=== PATIENT | female | born 1955 | race Hispanic/Latino ===

== ENCOUNTER → 2021-09-13 | Outpatient (CLI) | payer MEDICARE ==
[~2021-09-13] MED LIST: ALBUMIN (HUMAN) 25% 100 ML IV SCH; ALBUMIN (HUMAN) 25% 200 ML IV ONE; LIDOCAINE HCL MPF 1% 5ML VIAL ONE
[2021-09-13 08:46] LABS: BASOPHILS % (AUTO) 0.4 % (0.0-5.0); EOSINOPHILS % (AUTO) 0.1 % (0.0-8.0); HEMATOCRIT 38.9 % (36-48); LYMPHOCYTES % (AUTO) 5.3 % (21.0-51.0); MEAN CORPUSCULAR HGB CONC 31.6 g/dL (32.0-36.0); MEAN CORPUSCULAR VOLUME 85.3 fL (79-99); MONOCYTES % (AUTO) 6.3 % (3.0-13.0); NEUTROPHILS % (AUTO) 87.5 % (40.0-77.0); PLATELET COUNT (AUTO) 322 K/uL (130-400); RED BLOOD CELL COUNT(AUTO) 4.56 MIL/uL (4.00-5.50); RED CELL DISTRIBUTION WIDTH 12.7 % (11.0-15.5); WHITE BLOOD COUNT (AUTO) 13.2 K/uL (4.8-10.8)
[2021-09-13 08:57] LABS: INR 1.09 (0.85-1.15); PROTHROMBIN TIME 11.8 SEC (9.6-11.6)
[2021-09-13 08:58] LABS: PARTIAL THROMBOPLASTIN TIME 28.2 SEC (26.3-35.5)
[2021-09-13 09:33] LABS: ALBUMIN 2.9 g/dL (3.5-5.0)
[2021-09-13 12:28] LABS: ALBUMIN,BODY FLUID 2.4 g/dL; AMYLASE,BODY FLUID 27 U/L; GLUCOSE,BODY FLUID 105 mg/dL (1-40); TRIGLYCERIDES,BODY FLUID 29 mg/dL
[2021-09-13 12:42] LABS: SPECIMENTYPE,BODY FLUID ASCITES
[2021-09-13 12:43] LABS: APPEARANCE BODY FLUID CLEAR (CLEAR); BODY FLUID RBC 325 /cu. mm.; BODY FLUID WBC 514 /cu. mm.; COLOR,BODY FLUID YELLOW (LT YELLOW); TOTAL VOLUME,BODY FLUID 5000 mL
[2021-09-13 13:20] LABS: BF LYMPHOCYTE 63 %; BF MESOTHELIAL 1 %; BF MONOCYTE 3 %; BF OTHER CELLS 22
== END | disposition home or self-care (01) ==
LOC: RAH 07:35
PROVIDERS: ATTEND Family Medicine
DX: C56.9 Malignant neoplasm of unspecified ovary (principal); R18.0 Malignant ascites; Z79.899 Other long term (current) drug therapy; Z79.01 Long term (current) use of anticoagulants
CPT/HCPCS: 36415; 49083; 82040; 82042; 82150 ×2; 82945; 82947; 83615 ×2; 84157; 84478; 85025; 85610; 85730; 87071; 87205; 89051; C1729; J3490; P9046 ×2; 96365

== ENCOUNTER 2021-09-19 11:54 | Emergency (ER) | payer MEDICARE ==
[~2021-09-19] VITALS: Ht 162.6 cm; Wt 90.7 kg
[2021-09-19 12:21] LABS: BASOPHILS % (AUTO) 0.5 % (0.0-5.0); EOSINOPHILS % (AUTO) 0.8 % (0.0-8.0); HEMATOCRIT 37.6 % (36-48); LYMPHOCYTES % (AUTO) 11.1 % (21.0-51.0); MEAN CORPUSCULAR HEMOGLOBIN 26.6 pg (27.0-33.0); MEAN CORPUSCULAR HGB CONC 31.4 g/dL (32.0-36.0); MEAN CORPUSCULAR VOLUME 84.9 fL (79-99); NEUTROPHILS % (AUTO) 81.2 % (40.0-77.0); PLATELET COUNT (AUTO) 467 K/uL (130-400); RED BLOOD CELL COUNT(AUTO) 4.43 MIL/uL (4.00-5.50); WHITE BLOOD COUNT (AUTO) 9.7 K/uL (4.8-10.8)
[2021-09-19 12:28] LABS: INR 1.26 (0.85-1.15); PROTHROMBIN TIME 13.6 SEC (9.6-11.6)
[2021-09-19 12:29] LABS: CREATININE 0.6 mg/dL (0.5-1.5); POTASSIUM 3.8 mmol/L (3.5-5.1)
[2021-09-19 12:39] LABS: BILIRUBIN,TOTAL 0.3 mg/dL (0.2-1.0); TOTAL PROTEIN, SERUM 7.3 g/dL (6.0-8.3)
[2021-09-19 14:27] VITALS: BP 139/75
== END 2021-09-19 14:34 | disposition home or self-care (01) ==
LOC: EDH 11:54
DX: I82.401 Acute embolism and thrombosis of unspecified deep veins of right lower extremity (principal); K21.9 Gastro-esophageal reflux disease without esophagitis; Z88.1 Allergy status to other antibiotic agents; Z88.2 Allergy status to sulfonamides; Z88.8 Allergy status to other drugs, medicaments and biological substances
CPT/HCPCS: 36415; 80053; 85025; 85610; 85730; 93971

== ENCOUNTER → 2021-10-14 | Outpatient (CLI) | payer MEDICARE ==
[~2021-10-14] MED LIST changes: -ALBUMIN (HUMAN) 25% 100 ML IV SCH; -ALBUMIN (HUMAN) 25% 200 ML IV ONE; +ALBUMIN (HUMAN) 25% 200 ML IV SCH; +LIDOCAINE HCL 1% MDV 50ML VIAL ONE; -LIDOCAINE HCL MPF 1% 5ML VIAL ONE
[2021-10-14 13:37] LABS: APPEARANCE BODY FLUID CLEAR (CLEAR); COLOR,BODY FLUID YELLOW (LT YELLOW); SPECIMENTYPE,BODY FLUID ASCITES; TOTAL VOLUME,BODY FLUID 6600 mL
[2021-10-14 13:41] LABS: BODY FLUID RBC 283 /cu. mm.; BODY FLUID WBC 515 /cu. mm.
[2021-10-14 13:49] LABS: BF LYMPHOCYTE 88 %; BF MESOTHELIAL 1 %; BF MONOCYTE 6 %
== END | disposition home or self-care (01) ==
LOC: RAH 07:51
PROVIDERS: ATTEND Internal Medicine Gastroenterology
DX: R18.8 Other ascites (principal); Z79.01 Long term (current) use of anticoagulants; Z79.899 Other long term (current) drug therapy; Z83.3 Family history of diabetes mellitus; Z82.49 Family history of ischemic heart disease and other diseases of the circulatory system; Z82.0 Family history of epilepsy and other diseases of the nervous system; Z84.1 Family history of disorders of kidney and ureter; Z82.3 Family history of stroke
CPT/HCPCS: 49083; 89051; C1729; J3490; P9046; 96365

== ENCOUNTER → 2021-11-14 | Outpatient (CLI) | payer MEDICARE ==
[~2021-11-14] MED LIST changes: +ALBUMIN (HUMAN) 25% 200 ML IV PRN; +ESOM40CA54 PO; -LIDOCAINE HCL 1% MDV 50ML VIAL ONE; +METO-391 PO; +OLME40TA18 PO; +ONDA-104 PO
[2021-11-14 17:43] LABS: SPECIMENTYPE,BODY FLUID ASCITES
[2021-11-14 17:44] LABS: APPEARANCE BODY FLUID CLOUDY (CLEAR); BODY FLUID WBC 87 /cu. mm.; COLOR,BODY FLUID ORANGE (LT YELLOW); TOTAL VOLUME,BODY FLUID 3900 mL
[2021-11-14 17:45] LABS: BODY FLUID RBC 11450 /cu. mm.
[2021-11-14 18:28] LABS: BF LYMPHOCYTE 54 %; BF OTHER CELLS 12
== END ==
LOC: RAH 09:24
PROVIDERS: ATTEND Internal Medicine Gastroenterology
DX: R18.8 Other ascites (principal); R18.0 Malignant ascites
CPT/HCPCS: 49083; 89051; C1729

== ENCOUNTER 2021-11-15 17:15 | Inpatient (IN) | payer MEDICARE ==
[~2021-11-15] VITALS: Ht 165.1 cm; Wt 100.4 kg
[2021-11-15 17:56] LABS: BASOPHILS % (AUTO) 0.2 % (0.0-5.0); EOSINOPHILS % (AUTO) 0.3 % (0.0-8.0); HEMATOCRIT 32.5 % (36-48); LYMPHOCYTES % (AUTO) 4.5 % (21.0-51.0); MEAN CORPUSCULAR HEMOGLOBIN 26.9 pg (27.0-33.0); MEAN CORPUSCULAR HGB CONC 31.7 g/dL (32.0-36.0); MEAN CORPUSCULAR VOLUME 84.9 fL (79-99); NEUTROPHILS % (AUTO) 88.7 % (40.0-77.0); PLATELET COUNT (AUTO) 300 K/uL (130-400); RED BLOOD CELL COUNT(AUTO) 3.83 MIL/uL (4.00-5.50); RED CELL DISTRIBUTION WIDTH 16.1 % (11.0-15.5)
[2021-11-15] MEDS ORDERED: 0.9%NACL 1000ML 1,000 ML IV ONE (18:00)
[2021-11-15] MEDS ORDERED: NOREPINEPHRIN 4MG/NS 250ML 250 ML IV STA (18:01)
[2021-11-15 18:15] LABS: INR 1.07 (0.85-1.15); PROTHROMBIN TIME 11.6 SEC (9.6-11.6)
[2021-11-15 18:16] LABS: PARTIAL THROMBOPLASTIN TIME 27.3 SEC (26.3-35.5)
[2021-11-15 18:25] LABS: CREATININE 5.1 mg/dL (0.5-1.5); POTASSIUM 5.5 mmol/L (3.5-5.1)
[2021-11-15] MEDS ORDERED: VANCOMYCIN 1G VIAL IVPB ONE (18:30)
[2021-11-15 18:37] LABS: ALBUMIN 2.3 g/dL (3.5-5.0); TOTAL PROTEIN, SERUM 7.5 g/dL (6.0-8.3)
[2021-11-15] MEDS ORDERED: VANCOMYCIN 1G/250ML KIT 250 ML IV ONE (18:56)
[2021-11-15] MEDS ORDERED: MORPHINE 2 MG SYG IVP STA (18:57)
[2021-11-15] MEDS ORDERED: ONDANSETRON 4MG INJ IVP ONE (19:00)
[2021-11-15] MEDS ORDERED: PANTOPRAZOLE 40 MG/VIAL IVP SCH (19:30)
[2021-11-15] MEDS ORDERED: VANCOMYCIN PROTOCOL PER PHARMACY IV PRN (19:30)
[2021-11-15] MEDS: CEFEPIME HCL 2 GM VIAL IVP SCH (19:30)
[2021-11-15] MEDS ORDERED: LACTATED RINGERS 1000ML 1,710 ML IV ONE (19:30)
[2021-11-15 20:45] LABS: CHOLESTEROL 123 mg/dL (<200); HDL CHOLESTEROL 43 mg/dL (35-85); LDL DIRECT 41 mg/dL (0-99); TRIGLYCERIDES 168 mg/dL (30-200)
[2021-11-15] MEDS: LACTATED RINGERS 1000ML 1,000 ML IV SCH (21:00)
[2021-11-15] MEDS ORDERED: HEPARIN 5,000 UNIT VIAL SQ SCH (21:00)
[2021-11-15] MEDS ORDERED: IOHEXOL 350 MG/ML 100ML INFUS..BTL IV ONE (22:15)
[2021-11-15] MEDS: METRONIDAZOLE 500MG/100ML BAG 100 ML IVPB SCH (23:39)
[2021-11-16] VITALS (85 sets, daily range): BP systolic 70–125; BP diastolic 32–79
[2021-11-16] MEDS: HYDROMORPHONE 0.5 MG SYG (0.5MG/0.5ML) IV PRN ×4 (00:01→20:23)
[2021-11-16] MEDS ORDERED: METO-391 PO (04:06)
[2021-11-16] MEDS ORDERED: ESOM40CA54 PO (04:06)
[2021-11-16] MEDS ORDERED: ONDA-104 PO (04:06)
[2021-11-16] MEDS ORDERED: OLME40TA18 PO (04:06)
[2021-11-16] MEDS: MORPHINE 2 MG SYG IV PRN ×3 (05:16→17:54)
[2021-11-16 06:07] LABS: BASOPHILS % (AUTO) 0.2 % (0.0-5.0); EOSINOPHILS % (AUTO) 0.2 % (0.0-8.0); HEMATOCRIT 29.5 % (36-48); LYMPHOCYTES % (AUTO) 5.2 % (21.0-51.0); MEAN CORPUSCULAR HEMOGLOBIN 26.8 pg (27.0-33.0); MEAN CORPUSCULAR HGB CONC 30.8 g/dL (32.0-36.0); MEAN CORPUSCULAR VOLUME 86.8 fL (79-99); MONOCYTES % (AUTO) 5.9 % (3.0-13.0); NEUTROPHILS % (AUTO) 87.3 % (40.0-77.0); PLATELET COUNT (AUTO) 242 K/uL (130-400); RED CELL DISTRIBUTION WIDTH 16.3 % (11.0-15.5); WHITE BLOOD COUNT (AUTO) 20.3 K/uL (4.8-10.8)
[2021-11-16 06:24] LABS: MAGNESIUM 1.8 mg/dL (1.80-2.40); PHOSPHORUS 7.4 mg/dL (2.5-4.9); POTASSIUM 4.7 mmol/L (3.5-5.1)
[2021-11-16] MEDS: LACTATED RINGERS 1000ML 1,000 ML IV SCH (06:24)
[2021-11-16] MEDS: METRONIDAZOLE 500MG/100ML BAG 100 ML IVPB SCH ×3 (06:41→23:00)
[2021-11-16] MEDS: PANTOPRAZOLE 40 MG/VIAL IVP SCH (08:07)
[2021-11-16] MEDS: NOREPINEPHRIN 4MG/NS 250ML 250 ML IV SCH ×2 (08:21→15:48)
[2021-11-16 08:40] LABS: HCG,QUANTITATIVE 0 mIU/mL (0-5); LACTATE DEHYDROGENASE 411 U/L (81-234)
[2021-11-16] MEDS ORDERED: ALBUMIN (HUMAN) 25% 100 ML IV PRN (11:30)
[2021-11-16 12:57] LABS: CHOLESTEROL 111 mg/dL (<200); HDL CHOLESTEROL 33 mg/dL (35-85); LDL DIRECT 37 mg/dL (0-99); TRIGLYCERIDES 161 mg/dL (30-200)
[2021-11-16] MEDS ORDERED: LIDOCAINE HCL MPF 1% 5ML VIAL ONE (13:45)
[2021-11-16] MEDS ORDERED: SODIUM CHLORIDE 7% INHALATION 4 ML VIAL.NEB IH ONE (15:10)
[2021-11-16 16:29] LABS: APPEARANCE,URINE CLOUDY (CLEAR); BILIRUBIN,URINE SMALL (NEGATIVE); COLOR,URINE YELLOW (YELLOW); GLUCOSE, URINE (UA) NEGATIVE (NEGATIVE); KETONES,URINE 5 mg/dL (NEGATIVE); LEUKOCYTE ESTERASE ,URINE SMALL (NEGATIVE); NITRATE,URINE NEGATIVE (NEGATIVE); OCCULT BLOOD,URINE LARGE (NEGATIVE); PROTEIN,URINE 100 mg/dL (NEGATIVE); UROBILINOGEN,URINE 0.2 mg/dL (0.2-1.0)
[2021-11-16 16:35] LABS: BACTERIA,URINE Few /HPF (None Seen); SQUAMOUS EPITHELIAL CELL,UR Few /HPF (0-2)
[2021-11-16] MEDS: 0.9%NACL 1000ML 1,000 ML IV SCH (17:25)
[2021-11-16 17:38] LABS: SPECIMENTYPE,BODY FLUID PLEURAL
[2021-11-16 17:39] LABS: APPEARANCE BODY FLUID CLOUDY (CLEAR); BODY FLUID WBC 136 /cu. mm.; COLOR,BODY FLUID ORANGE (LT YELLOW); TOTAL VOLUME,BODY FLUID 1100 mL
[2021-11-16 17:40] LABS: BODY FLUID RBC 36700 /cu. mm.
[2021-11-16 18:09] LABS: BF LYMPHOCYTE 49 %; BF OTHER CELLS 18
[2021-11-16] MEDS: CEFEPIME HCL 2 GM VIAL IVP SCH (20:42)
[2021-11-16] MEDS ORDERED: HEPARIN 5,000 UNIT VIAL SQ SCH (21:00)
[2021-11-17] VITALS (93 sets, daily range): BP systolic 83–123; BP diastolic 37–85
[2021-11-17] MEDS: MORPHINE 2 MG SYG IV PRN ×3 (00:21→19:18)
[2021-11-17] MEDS: ONDANSETRON 4MG INJ IV PRN ×3 (00:21→19:18)
[2021-11-17] MEDS: HYDROMORPHONE 0.5 MG SYG (0.5MG/0.5ML) IV PRN ×3 (01:49→14:47)
[2021-11-17] MEDS: 0.9%NACL 1000ML 1,000 ML IV SCH ×3 (04:30→21:57)
[2021-11-17] MEDS: METRONIDAZOLE 500MG/100ML BAG 100 ML IVPB SCH ×3 (06:36→21:57)
[2021-11-17 06:38] LABS: BASOPHILS % (AUTO) 0.2 % (0.0-5.0); EOSINOPHILS % (AUTO) 0.2 % (0.0-8.0); HEMATOCRIT 27.6 % (36-48); LYMPHOCYTES % (AUTO) 3.3 % (21.0-51.0); MEAN CORPUSCULAR HEMOGLOBIN 26.8 pg (27.0-33.0); MEAN CORPUSCULAR HGB CONC 31.2 g/dL (32.0-36.0); MONOCYTES % (AUTO) 5.9 % (3.0-13.0); NEUTROPHILS % (AUTO) 89.3 % (40.0-77.0); PLATELET COUNT (AUTO) 232 K/uL (130-400); RED BLOOD CELL COUNT(AUTO) 3.21 MIL/uL (4.00-5.50); RED CELL DISTRIBUTION WIDTH 16.4 % (11.0-15.5); WHITE BLOOD COUNT (AUTO) 21.2 K/uL (4.8-10.8)
[2021-11-17 06:50] LABS: CREATININE 3.3 mg/dL (0.5-1.5); POTASSIUM 4.6 mmol/L (3.5-5.1)
[2021-11-17] MEDS ORDERED: VANCOMYCIN PROTOCOL PER PHARMACY IV SCH (07:30)
[2021-11-17] MEDS ORDERED: DOXYCYCLINE 100MG+NS 250ML IV SCH (07:30)
[2021-11-17] MEDS ORDERED: PHARMACY COMMUNICATION MISC SCH (08:00)
[2021-11-17] MEDS ORDERED: 0.9% NACL 250ML 250 ML ONE (08:07)
[2021-11-17] MEDS: PANTOPRAZOLE 40 MG/VIAL IVP SCH (08:08)
[2021-11-17] MEDS: VANCOMYCIN 1G/250ML KIT 250 ML IV SCH (08:09)
[2021-11-17] MEDS: NOREPINEPHRIN 4MG/NS 250ML 250 ML IV SCH (10:40)
[2021-11-17] MEDS ORDERED: METOCLOPRAMIDE 10 MG/2 ML VIAL ONE (15:52)
[2021-11-17] MEDS: METOCLOPRAMIDE 10 MG/2 ML VIAL IVP PRN (16:00)
[2021-11-17] MEDS ORDERED: VANCOMYCIN 1G/250ML KIT 250 ML IV SCH (18:00)
[2021-11-17] MEDS: CEFEPIME HCL 2 GM VIAL IVP SCH (18:38)
[2021-11-17] MEDS: ENOXAPARIN SODIUM 100 MG/1 ML SQ SCH (21:56)
[2021-11-18] VITALS (81 sets, daily range): BP systolic 77–121; BP diastolic 31–73
[2021-11-18 03:39] LABS: BASOPHILS % (AUTO) 0.2 % (0.0-5.0); EOSINOPHILS % (AUTO) 0.3 % (0.0-8.0); HEMATOCRIT 27.1 % (36-48); LYMPHOCYTES % (AUTO) 3.3 % (21.0-51.0); MEAN CORPUSCULAR HEMOGLOBIN 26.9 pg (27.0-33.0); MEAN CORPUSCULAR VOLUME 86.9 fL (79-99); MONOCYTES % (AUTO) 4.9 % (3.0-13.0); NEUTROPHILS % (AUTO) 90.4 % (40.0-77.0); PLATELET COUNT (AUTO) 257 K/uL (130-400); RED BLOOD CELL COUNT(AUTO) 3.12 MIL/uL (4.00-5.50); RED CELL DISTRIBUTION WIDTH 16.7 % (11.0-15.5); WHITE BLOOD COUNT (AUTO) 22.2 K/uL (4.8-10.8)
[2021-11-18] MEDS: MORPHINE 2 MG SYG IV PRN (03:41)
[2021-11-18 03:53] LABS: ALBUMIN 1.9 g/dL (3.5-5.0); CREATININE 2.8 mg/dL (0.5-1.5); POTASSIUM 4.9 mmol/L (3.5-5.1); TOTAL PROTEIN, SERUM 6.4 g/dL (6.0-8.3)
[2021-11-18] MEDS ORDERED: SODIUM BICARB 50MEQ 50ML VIAL IV ONE (05:30)
[2021-11-18 06:37] LABS: ABG BASE EXCESS -14.4 mmol/L (-2.0-3.0); ABG OXYGEN SATURATION 95.3 % (95.0-99.0); ABG PCO2 26 mmHg (32-45)
[2021-11-18] MEDS: HYDROMORPHONE 0.5 MG SYG (0.5MG/0.5ML) IV PRN ×3 (06:57→19:49)
[2021-11-18] MEDS: METRONIDAZOLE 500MG/100ML BAG 100 ML IVPB SCH ×2 (06:57→13:08)
[2021-11-18] MEDS: 0.9%NACL 1000ML 1,000 ML IV SCH ×2 (06:57→16:53)
[2021-11-18] MEDS: SODIUM BICARBONATE 650 MG TAB PO SCH ×3 (08:49→20:28)
[2021-11-18] MEDS: PANTOPRAZOLE 40 MG/VIAL IVP SCH ×2 (08:49→20:28)
[2021-11-18 09:25] LABS: ALBUMIN 1.9 g/dL (3.5-5.0); CREATININE 2.6 mg/dL (0.5-1.5); POTASSIUM 4.6 mmol/L (3.5-5.1); TOTAL PROTEIN, SERUM 6.1 g/dL (6.0-8.3)
[2021-11-18] MEDS: FLUCONAZOLE 200 MG/NS 100 ML 100 ML IV SCH (15:09)
[2021-11-18] MEDS: MEROPENEM 1 GM VIAL IVP SCH (15:09)
[2021-11-18] MEDS: NOREPINEPHRIN 4MG/NS 250ML 250 ML IV SCH (17:56)
[2021-11-18] MEDS: MIDODRINE HCL 5 MG TABLET PO SCH (20:29)
[2021-11-18] MEDS: ENOXAPARIN SODIUM 100 MG/1 ML SQ SCH (20:29)
[2021-11-19] VITALS (66 sets, daily range): BP systolic 82–132; BP diastolic 36–86
[2021-11-19] MEDS: HYDROMORPHONE 0.5 MG SYG (0.5MG/0.5ML) IV PRN ×4 (00:24→23:52)
[2021-11-19] MEDS: 0.9%NACL 1000ML 1,000 ML IV SCH ×3 (00:39→23:37)
[2021-11-19] MEDS: MEROPENEM 1 GM VIAL IVP SCH ×2 (02:01→14:10)
[2021-11-19 05:25] LABS: BASOPHILS % (AUTO) 0.3 % (0.0-5.0); EOSINOPHILS % (AUTO) 0.3 % (0.0-8.0); HEMATOCRIT 25.4 % (36-48); LYMPHOCYTES % (AUTO) 3.4 % (21.0-51.0); MEAN CORPUSCULAR HEMOGLOBIN 26.7 pg (27.0-33.0); MEAN CORPUSCULAR HGB CONC 31.1 g/dL (32.0-36.0); MEAN CORPUSCULAR VOLUME 85.8 fL (79-99); MONOCYTES % (AUTO) 5.8 % (3.0-13.0); NEUTROPHILS % (AUTO) 89.3 % (40.0-77.0); PLATELET COUNT (AUTO) 294 K/uL (130-400); RED BLOOD CELL COUNT(AUTO) 2.96 MIL/uL (4.00-5.50); RED CELL DISTRIBUTION WIDTH 16.9 % (11.0-15.5); WHITE BLOOD COUNT (AUTO) 14.8 K/uL (4.8-10.8)
[2021-11-19 05:37] LABS: ALBUMIN 1.7 g/dL (3.5-5.0); CREATININE 1.9 mg/dL (0.5-1.5); POTASSIUM 4.5 mmol/L (3.5-5.1)
[2021-11-19] MEDS: VANCOMYCIN 1G/250ML KIT 250 ML IV SCH (08:37)
[2021-11-19] MEDS: SODIUM BICARBONATE 650 MG TAB PO SCH ×3 (08:37→20:26)
[2021-11-19] MEDS: PANTOPRAZOLE 40 MG/VIAL IVP SCH ×2 (08:37→20:26)
[2021-11-19] MEDS: MIDODRINE HCL 5 MG TABLET PO SCH ×3 (08:38→20:26)
[2021-11-19] MEDS: MORPHINE 2 MG SYG IV PRN (08:38)
[2021-11-19] MEDS ORDERED: ALBUMIN (HUMAN) 25% 100 ML IV PRN (10:30)
[2021-11-19] MEDS: FLUCONAZOLE 200 MG/NS 100 ML 100 ML IV SCH (14:10)
[2021-11-19] MEDS: METOCLOPRAMIDE 10 MG/2 ML VIAL IVP PRN (14:39)
[2021-11-19] MEDS: ENOXAPARIN SODIUM 100 MG/1 ML SQ SCH (20:27)
[2021-11-19] MEDS: POLYETHYLENE GLYCOL 3350 17 GM POWD.PACK PO SCH (20:30)
[2021-11-20] VITALS (18 sets, daily range): BP systolic 94–123; BP diastolic 51–79
[2021-11-20] MEDS: MEROPENEM 1 GM VIAL IVP SCH ×2 (02:37→14:08)
[2021-11-20 06:10] LABS: BASOPHILS % (AUTO) 0.2 % (0.0-5.0); EOSINOPHILS % (AUTO) 0.3 % (0.0-8.0); HEMATOCRIT 24.4 % (36-48); LYMPHOCYTES % (AUTO) 5.4 % (21.0-51.0); MEAN CORPUSCULAR HEMOGLOBIN 26.8 pg (27.0-33.0); MEAN CORPUSCULAR HGB CONC 30.7 g/dL (32.0-36.0); MEAN CORPUSCULAR VOLUME 87.1 fL (79-99); MONOCYTES % (AUTO) 7.2 % (3.0-13.0); NEUTROPHILS % (AUTO) 86.1 % (40.0-77.0); PLATELET COUNT (AUTO) 322 K/uL (130-400)
[2021-11-20 06:24] LABS: ALBUMIN 2.2 g/dL (3.5-5.0); CREATININE 1.6 mg/dL (0.5-1.5); POTASSIUM 4.5 mmol/L (3.5-5.1); TOTAL PROTEIN, SERUM 6.1 g/dL (6.0-8.3)
[2021-11-20] MEDS: POLYETHYLENE GLYCOL 3350 17 GM POWD.PACK PO SCH (08:19)
[2021-11-20] MEDS: MIDODRINE HCL 5 MG TABLET PO SCH ×3 (08:19→21:22)
[2021-11-20] MEDS: SODIUM BICARBONATE 650 MG TAB PO SCH ×3 (08:19→21:22)
[2021-11-20] MEDS: HYDROMORPHONE 0.5 MG SYG (0.5MG/0.5ML) IV PRN ×2 (08:19→15:03)
[2021-11-20] MEDS: PANTOPRAZOLE 40 MG/VIAL IVP SCH ×2 (08:19→21:22)
[2021-11-20] MEDS: 0.9%NACL 1000ML 1,000 ML IV SCH (09:35)
[2021-11-20] MEDS: ACETAMINOPHEN 325 MG TAB PO PRN (21:08)
[2021-11-20] MEDS: ENOXAPARIN SODIUM 100 MG/1 ML SQ SCH (21:24)
[2021-11-20] MEDS: HYDROCODONE/ACETAMINOPHEN 10/325 MG TAB PO PRN (22:04)
[2021-11-21] VITALS: BP 106/68
[2021-11-21] MEDS: ACETAMINOPHEN 325 MG TAB PO PRN (01:44)
[2021-11-21] MEDS: MEROPENEM 1 GM VIAL IVP SCH ×2 (03:34→15:58)
[2021-11-21] MEDS: HYDROCODONE/ACETAMINOPHEN 10/325 MG TAB PO PRN ×3 (03:35→20:21)
[2021-11-21] MEDS: 0.9%NACL 1000ML 1,000 ML IV SCH (03:39)
[2021-11-21 03:57] VITALS: BP 101/62
[2021-11-21] MEDS: SODIUM BICARBONATE 650 MG TAB PO SCH ×3 (08:07→20:21)
[2021-11-21] MEDS: PANTOPRAZOLE 40 MG/VIAL IVP SCH ×2 (08:07→20:21)
[2021-11-21] MEDS: MIDODRINE HCL 5 MG TABLET PO SCH ×3 (08:07→20:21)
[2021-11-21] MEDS: POLYETHYLENE GLYCOL 3350 17 GM POWD.PACK PO SCH (08:10)
[2021-11-21 08:59] VITALS: BP 112/59
[2021-11-21] MEDS: 1/2 NS 1000ML 1,000 ML IV SCH (10:02)
[2021-11-21 12:59] VITALS: BP 109/62
[2021-11-21 16:49] VITALS: BP 105/66
[2021-11-21 20:00] VITALS: BP 100/69
[2021-11-21] MEDS: ENOXAPARIN SODIUM 100 MG/1 ML SQ SCH (20:22)
[2021-11-22] VITALS: BP 104/65
[2021-11-22] MEDS: MEROPENEM 1 GM VIAL IVP SCH ×2 (03:37→14:40)
[2021-11-22 04:00] VITALS: BP 114/66
[2021-11-22 05:16] LABS: ALBUMIN 2.3 g/dL (3.5-5.0); CREATININE 1.3 mg/dL (0.5-1.5); POTASSIUM 4.3 mmol/L (3.5-5.1); TOTAL PROTEIN, SERUM 6.7 g/dL (6.0-8.3)
[2021-11-22 05:25] LABS: HEMATOCRIT 28.5 % (36-48); MEAN CORPUSCULAR HEMOGLOBIN 26.7 pg (27.0-33.0); MEAN CORPUSCULAR HGB CONC 29.8 g/dL (32.0-36.0); MEAN CORPUSCULAR VOLUME 89.6 fL (79-99); RED BLOOD CELL COUNT(AUTO) 3.18 MIL/uL (4.00-5.50); RED CELL DISTRIBUTION WIDTH 17.4 % (11.0-15.5); WHITE BLOOD COUNT (AUTO) 12.4 K/uL (4.8-10.8)
[2021-11-22] MEDS: 1/2 NS 1000ML 1,000 ML IV SCH (05:43)
[2021-11-22 07:30] VITALS: BP 115/74
[2021-11-22] MEDS: PANTOPRAZOLE 40 MG/VIAL IVP SCH ×2 (10:20→21:30)
[2021-11-22] MEDS: HYDROCODONE/ACETAMINOPHEN 10/325 MG TAB PO PRN ×3 (10:20→22:22)
[2021-11-22] MEDS: SODIUM BICARBONATE 650 MG TAB PO SCH ×3 (10:21→21:29)
[2021-11-22] MEDS: POLYETHYLENE GLYCOL 3350 17 GM POWD.PACK PO SCH (10:22)
[2021-11-22] MEDS: MIDODRINE HCL 5 MG TABLET PO SCH ×3 (10:22→21:29)
[2021-11-22 11:00] VITALS: BP 118/55
[2021-11-22 16:00] VITALS: BP 120/79
[2021-11-22 17:01] LABS: INR 1.32 (0.85-1.15); PROTHROMBIN TIME 14.2 SEC (9.6-11.6)
[2021-11-22 17:02] LABS: PARTIAL THROMBOPLASTIN TIME 32.5 SEC (26.3-35.5)
[2021-11-22 18:02] LABS: APPEARANCE BODY FLUID CLOUDY (CLEAR); COLOR,BODY FLUID ORANGE (LT YELLOW); SPECIMENTYPE,BODY FLUID PLEURAL; TOTAL VOLUME,BODY FLUID 550 mL
[2021-11-22 18:03] LABS: BODY FLUID RBC 22700 /cu. mm.; BODY FLUID WBC 63 /cu. mm.
[2021-11-22 18:10] LABS: BF LYMPHOCYTE 20 %; BF MONOCYTE 3 %; BF OTHER CELLS 1
[2021-11-22 20:00] VITALS: BP 114/67
[2021-11-22] MEDS: ENOXAPARIN SODIUM 100 MG/1 ML SQ SCH (21:30)
[2021-11-23] VITALS (13 sets, daily range): BP systolic 109–137; BP diastolic 41–88
[2021-11-23] MEDS: MEROPENEM 1 GM VIAL IVP SCH ×2 (03:54→17:46)
[2021-11-23] MEDS: 1/2 NS 1000ML 1,000 ML IV SCH (03:55)
[2021-11-23 08:46] LABS: TOTAL PROTEIN, SERUM 6.6 g/dL (6.0-8.3)
[2021-11-23] MEDS: POLYETHYLENE GLYCOL 3350 17 GM POWD.PACK PO SCH (09:00)
[2021-11-23] MEDS: PANTOPRAZOLE 40 MG/VIAL IVP SCH ×2 (09:31→20:37)
[2021-11-23] MEDS: SODIUM BICARBONATE 650 MG TAB PO SCH ×3 (09:32→20:37)
[2021-11-23] MEDS: MIDODRINE HCL 5 MG TABLET PO SCH ×3 (09:32→20:37)
[2021-11-23] MEDS: ONDANSETRON 4MG INJ IV PRN ×2 (09:46→20:48)
[2021-11-23] MEDS: HYDROCODONE/ACETAMINOPHEN 10/325 MG TAB PO PRN ×2 (11:20→20:38)
[2021-11-23] MEDS: METOCLOPRAMIDE 10 MG/2 ML VIAL IVP PRN (13:10)
[2021-11-23] MEDS ORDERED: PROPOFOL 10 MG/ML 20ML VIAL IV ONE (15:16)
[2021-11-23] MEDS ORDERED: LIDOCAINE PF 100MG/5ML (2%) SYRINGE 5ML ONE (15:16)
[2021-11-23] MEDS ORDERED: GLYCOPYRROLATE 1 MG/5 ML SYRINGE ONE (15:17)
[2021-11-23] MEDS ORDERED: ALBUMIN (HUMAN) 5% 250 ML IV ONE (15:30)
[2021-11-23] MEDS ORDERED: 0.9%NACL 1000ML 1,000 ML IV ONE (15:30)
[2021-11-23] MEDS: ENOXAPARIN SODIUM 100 MG/1 ML SQ SCH (20:39)
== END 2021-11-24 00:30 | disposition short-term general hospital (02) | DRG 871 ==
LOC: EDH 17:15 → EDHIP 19:02 → 2BH 11-16 00:29 → 2AH 11-20 14:48 → 4CH 11-21 17:30 → 4DH 11-21 18:23
PROVIDERS: ADMIT Hospitalist; ATTEND Hospitalist
PROC: 0W9B3ZZ Drainage of Left Pleural Cavity, Percutaneous Approach (ICD-10-PCS; principal; 2021-11-16)
PROC: 5A09357 Assistance with Respiratory Ventilation, Less than 24 Consecutive Hours, Continuous Positive Airway Pressure (ICD-10-PCS; 2021-11-21)
PROC: 0W9B3ZZ Drainage of Left Pleural Cavity, Percutaneous Approach (ICD-10-PCS; 2021-11-22)
PROC: 05HY33Z Insertion of Infusion Device into Upper Vein, Percutaneous Approach (ICD-10-PCS; 2021-11-23)
PROC: 0DB68ZX Excision of Stomach, Via Natural or Artificial Opening Endoscopic, Diagnostic (ICD-10-PCS; 2021-11-23)
DX: A41.9 Sepsis, unspecified organism (principal); J18.9 Pneumonia, unspecified organism; J96.01 Acute respiratory failure with hypoxia; K65.2 Spontaneous bacterial peritonitis; K85.90 Acute pancreatitis without necrosis or infection, unspecified; R65.21 Severe sepsis with septic shock; N17.9 Acute kidney failure, unspecified; D68.9 Coagulation defect, unspecified; I82.401 Acute embolism and thrombosis of unspecified deep veins of right lower extremity; R18.0 Malignant ascites; N39.0 Urinary tract infection, site not specified; J93.9 Pneumothorax, unspecified; J91.0 Malignant pleural effusion; C78.6 Secondary malignant neoplasm of retroperitoneum and peritoneum; Z20.822 Contact with and (suspected) exposure to COVID-19; K76.0 Fatty (change of) liver, not elsewhere classified; K74.60 Unspecified cirrhosis of liver; E78.00 Pure hypercholesterolemia, unspecified; E66.9 Obesity, unspecified; E11.22 Type 2 diabetes mellitus with diabetic chronic kidney disease; D64.9 Anemia, unspecified; B96.20 Unspecified Escherichia coli [E. coli] as the cause of diseases classified elsewhere; K44.9 Diaphragmatic hernia without obstruction or gangrene; N18.9 Chronic kidney disease, unspecified; I12.9 Hypertensive chronic kidney disease with stage 1 through stage 4 chronic kidney disease, or unspecified chronic kidney disease; Z86.718 Personal history of other venous thrombosis and embolism; Z90.710 Acquired absence of both cervix and uterus; Z74.01 Bed confinement status; Z88.0 Allergy status to penicillin; Z88.1 Allergy status to other antibiotic agents; Z68.36 Body mass index [BMI] 36.0-36.9, adult
CPT/HCPCS: 32555; 36415; 36600; 43239; 49083; 51702; 71045; 74176; 76705; 76770; 76857; 80048; 80053; 80061; 80202; 81001; 82378; 82550; 82803; 82945; 82948; 83605; 83615; 83690; 83735; 83880; 83986; 84100; 84145; 84155; 84157; 84484; 84702; 85025; 85027; 85378; 85610; 85730; 86304; 87040; 87071; 87077; 87088; 87116; 87186; 87205; 87206; 87635; 88112; 88305; 88341; 88342; 89051; 93005; 93306; 93971; 94640; 97039; 99291; C1729; C1894; C9113; G0378; J0692; J1170; J1450; J1644; J1650; J2001; J2185; J2405; J2704; J2765; J3370; J3490; J7030; J7050; P9045; P9046; Q9967